=== PATIENT | male | born 1965 | race Caucasian/White ===

== ENCOUNTER 2017-08-23 17:57 | Emergency (ER) | payer SELFPAY ==
[~2017-08-23] VITALS: Ht 182.9 cm; Wt 85.0 kg
[2017-08-23] MEDS ORDERED: HYDROCO/APAP1 TA9 PO (18:33)
[2017-08-23] MEDS ORDERED: ANTIBIOTIC PO (18:36)
[2017-08-23 18:45] VITALS: BP 154/78
== END 2017-08-23 18:50 | disposition home or self-care (01) | DRG 951 ==
LOC: ED 17:57
DX: Z48.00 Encounter for change or removal of nonsurgical wound dressing (principal); R04.0 Epistaxis